=== PATIENT | female | born 1990 | race Caucasian/White ===

== ENCOUNTER 2022-02-16 11:04 | Inpatient (IN) | payer BC ==
--- NOTE | 2022-02-17 20:01 | P.HPOB ---
History of Present Illness H&P Date: 02/17/22 Chief Complaint: Requested induction of labor This patient is a pleasant 32 yr female EDC 02/16/2022 estimated gestational age 40 2/7 weeks who presents to L&D for requested postdates induction of labor. has been uncomplicated. Review of Systems Genitourinary: Reports Menstruation: Reports amenorrhea Past Medical History Past Medical History: No Reported History History of Any Multi-Drug Resistant Organisms: None Reported Past Surgical History: No Surgical Hx Reported Past Anesthesia/Blood Transfusion Reactions: No Reported Reaction Past Psychological History: No Psychological Hx Reported Smoking Status: Never smoker Past Alcohol Use History: None Reported Past Drug Use History: None Reported Medications and Allergies Allergies Allergy/AdvReac Type Severity Reaction Status Date / Time No Known Allergies Allergy Verified 02/17/22 19:57 Exam - OBG Physical Exam Abdomen: bowel sounds normal, no diffuse tenderness, no bruit present, no guarding noted, no hepatomegaly, no splenomegaly, no mass Vulva: both: normal Vagina: normal moisture, no discharge Cervix: no lesion (Cx 2/50%/-2 in the office), no discharge Uterus: enlarged (Fundal height was 39 cm) Results Labs: O positive, Rubella Immune, ZBC-OdmI-EBV neg, GBS was positive, Glucola 157 with a normal 3hr GTT. Ultrasound on 01/12 showed EFW 5#3oz (~50%) Assessment and Plan Assessment: This is a pleasant 32 yr female estimated gestational age 40 2/7 weeks who presents to L&D for requested induction of labor. History of positive GBS this . Plan is antibiotic prophylaxis and induction of labor. Anticipate vagina delivery (1) Postmaturity , 40-42 weeks gestation Status: Acute Code(s): O48.0 - POST-TERM SNOMED Code(s): 66166286534079 (2) Group B streptococcal carriage complicating Status: Acute Code(s): O99.820 - STREPTOCOCCUS B CARRIER STATE COMPLICATING SNOMED Code(s): 252537129038280 (3) Elective induction of labor planned Status: Acute Code(s): LZN0330 - SNOMED Code(s): 054050772
[2022-02-18] MEDS ORDERED: AMPICILLIN 2,000 MG in SODIUM CHLORIDE 0.9% 100 ML IVPB ONE (06:00)
[2022-02-18] MEDS ORDERED: CARBOPROST TROMETHAMINE 250 MCG/ML 1 ML AMP IM PRN (06:06)
[2022-02-18] MEDS ORDERED: OXYTOCIN 10 UNIT/ML 1 ML VIAL IM PRN (06:06)
[2022-02-18] MEDS ORDERED: OXYTOCIN 30 UNITS/500 ML NS 30 UNIT in SALINE 1 500ML.BAG IV SCH ×2 (06:06→20:15)
[2022-02-18] MEDS ORDERED: TERBUTALINE 1 MG/ML VIAL SQ PRN (06:06)
[2022-02-18] MEDS ORDERED: METHYLERGONOVINE 0.2 MG/ML 1 ML AMP IM PRN (06:06)
[2022-02-18] MEDS ORDERED: LIDOCAINE 0.5% (PF) 5 MG/ML (50 ML SDV) SQ PRN (06:06)
[2022-02-18] MEDS: LACTATED RINGERS 1,000 ML IV SCH ×3 (06:29→20:15)
[2022-02-18 06:50] LABS: Anisocytosis Slight; Basophils % (A) 0 %; Eosinophils % (A) 1 %; HCT 33.8 % (34.0-46.0); HGB 10.5 gm/dL (11.4-16.0); Hypochromasia Moderate; Lymphocytes % (A) 28 %; MCH 22.5 pg (25.0-35.0); MCHC 30.9 g/dL (31.0-37.0); MCV 72.6 fL (80.0-100.0); Mean Platelet Volume 9.8; Microcytosis Moderate; Monocytes # (A) 0.3 k/uL (0-1.0); Monocytes % (A) 5 %; Neutrophils # (A) 4.6 k/uL (1.3-7.7); Neutrophils % (A) 66 %; Platelet Count 157 k/uL (150-450); RBC 4.66 m/uL (3.80-5.40); RDW 17.4 % (11.5-15.5)
[2022-02-18] MEDS: AMPICILLIN 1,000 MG in SODIUM CHLORIDE 0.9% 50 ML IVPB SCH ×3 (11:02→19:11)
[2022-02-18] MEDS ORDERED: fentaNYL (PF) 50 MCG/ML 5 ML AMP ONE (13:50)
[2022-02-18] MEDS ORDERED: SODIUM CHLORIDE 0.9% 100 ML BAG ONE (13:50)
[2022-02-18] MEDS ORDERED: ROPIVACAINE 5MG/ML 20ML VIAL ONE (13:50)
[2022-02-18] MEDS ORDERED: CITRIC ACID-SODIUM CITRATE 15 ML CUP PO ONE (18:59)
[2022-02-18] MEDS ORDERED: NALBUPHINE 10 MG/ML (1 ML AMP) ONE (19:16)
[2022-02-18] MEDS ORDERED: ONDANSETRON 4 MG/2 ML VIAL ONE (19:16)
[2022-02-18] MEDS ORDERED: KETOROLAC 15 MG/ML 1 ML VIAL ONE (19:16)
[2022-02-18] MEDS ORDERED: MORPHINE SULFATE (PF) 0.3 MG/0.3 ML SYR ONE (19:16)
[2022-02-18] MEDS ORDERED: MORPHINE SULFATE 2 MG/ML SYRINGE IVP PRN (19:39)
[2022-02-18] MEDS ORDERED: diphenhydrAMINE 50 MG/ML 1 ML VIAL IVP PRN ×2 (19:39→20:02)
[2022-02-18] MEDS ORDERED: NALOXONE 0.4 MG/ML 1 ML VIAL IV PRN (19:39)
[2022-02-18] MEDS ORDERED: ONDANSETRON 4 MG/2 ML VIAL IVP PRN (19:39)
[2022-02-18] MEDS ORDERED: METOCLOPRAMIDE 5 MG/ML 2 ML VIAL IVP PRN (20:02)
[2022-02-18] MEDS ORDERED: diphenhydrAMINE 25 MG CAP PO PRN (20:02)
[2022-02-18] MEDS ORDERED: ZOLPIDEM 5 MG TAB PO PRN (20:02)
--- NOTE | 2022-02-18 20:24 | P.OP ---
Date of Procedure: 02/18/22 Preoperative Diagnosis: #1: 40-2/7 week intrauterine . #2: Failure to descend/progress in labor Postoperative Diagnosis: Same Procedure(s) Performed: Primary low transverse section Anesthesia: spinal Surgeon: Sae Dillon Director Of Restaurant Operations #1: Kassy Heard Estimated Blood Loss (ml): 600 Pathology: none sent Condition: stable Disposition: floor Indications for Procedure: Please see dictated H&P for intimate details of this patient's admission. Brief summary this is a pleasant 32-year-old 1 para 0 female 40-2/7 weeks gestation who presented this morning for postdates induction of labor. Patient is artificial rupture membranes at 2 cm dilated for clear fluid. Labor is induced with Pitocin per protocol. Despite prolonged labor the head did not descend beyond -2 station. She also some decreased variability at that time I discussed options with her and elected proceed with section for delivery. Patient understands this surgery and risks and risks of infection, bleeding, possible injury bowel, bladder, vessels, and/or other organs. All the patient's questions are answered and a written consent is obtained. Operative Findings: Vigorous viable female infant Apgars 9 and 9 delivery times 1932 hrs. head was transverse presentation Description of Procedure: This patient has a Pitt catheter placed to straight drain. She is subsequently taken to the operating room where the epidural was dosed up for sufficient level of surgery. With an adequate level of anesthesia she has abdominal prep and drape. Scalpels then taken and a Pfannenstiel skin incision is then made. A second scalpel is taken down the fascia the fascia scored with a knife. Fascial incision extended bilaterally using the Vásquez scissors. Fascia is dissected sharply off the rectus muscles. Rectus muscles are peritoneum identified and entered sharply. Peritoneal incision extended superior and inferior without difficulty. Bladder blade is then placed. Bladder peritoneum was taken sharply off the lower uterine segment. Scalpels and taken low transverse uterine incision is then made. Using a hemostat I into the uterine cavity bluntly and there is loss of small amount of clear fluid. The uterine incision is then bluntly extended. Infant's head is then guided through the incision with fundal pressure. Mouth and nares are bulb suctioned. There is a nuchal cord 1 which is reduced. With more fundal pressure we then deliver the rest of this's 1932 hrs. After delivery of the the umbilical cord is doubly clamped and cut is handed off to the nurse who is in attendance. The placenta is then manually extracted intact. Uterine incision demarcated with Reeder clamps and closed using 0 Vicryl running locked fashion 2 laye rs. Excellent hemostasis is noted bladder peritoneum was then reapproximated using a 3-0 Vicryl running fashion. Excess fluid is removed from the abdomen and pelvis. Uterus is placed back into the abdomen. The uterus, tubes, ovaries appear normal for term gestation. The parietal peritoneum was then closed using 0 Vicryl running fashion. Rectus muscles reapproximated using 0 Vicryl interrupted fashion. Fascial incision then closed using 0 PDS. Fascial incision is intact and hemostatic. Subcutaneous tissues and closed using a 3-0 Vicryl. Skin is and closed using josy. Sterile dressing is applied. All counts are correct 3. No complications. and mother are stable delivery room.
[2022-02-19] MEDS: IBUPROFEN 600 MG TAB PO SCH ×3 (02:00→21:39)
[2022-02-19] MEDS: KETOROLAC 15 MG/ML 1 ML VIAL IVP SCH ×3 (02:00→17:02)
[2022-02-19] MEDS: ACETAMINOPHEN TAB 500 MG TAB PO SCH ×5 (02:03→23:41)
[2022-02-19] MEDS: LACTATED RINGERS 1,000 ML IV SCH ×3 (06:28→21:40)
--- NOTE | 2022-02-19 06:45 | P.PNOBGPC ---
Subjective - Subjective Patient reports: Reports appetite normal, Reports voiding normally, Reports pain well controlled, Reports ambulating normally : doing well Objective - Vital Signs Latest vital signs: Vital Signs Temp Pulse Resp BP Pulse Ox 02/19/22 02:00 15 02/19/22 00:39 98 02/19/22 00:00 97.9 F 86 15 130/82 98 02/18/22 22:39 16 02/18/22 22:00 98.1 F 89 15 133/75 97 02/18/22 21:30 90 16 132/83 97 02/18/22 21:00 82 16 127/83 98 02/18/22 20:45 84 15 139/94 99 02/18/22 20:39 16 98 02/18/22 20:30 86 16 134/79 100 02/18/22 20:15 90 15 137/72 100 02/18/22 20:00 97.2 F L 83 16 122/80 100 02/18/22 07:30 97.3 F L 82 18 131/82 98 Intake and Output 02/18/22 02/18/22 02/19/22 14:59 22:59 06:59 Intake Total 26.967 Output Total 2014 200 Balance -1988.033 -200 Intake: Intake, IV Titration 26.967 Amount Oxytocin 30 Units/500 ml 26.967 Ns 30 unit In Saline 1 500ml.bag @ Per Protocol IV .Q0M [facility] Rx#:[id number] Output: Urine 600 200 Straight 300 Estimated Blood Loss 1200 Output, Quantitative 215 Blood Loss Other: Voiding Method Indwelling Catheter Indwelling Catheter Weight 94.347 kg - Exam Lungs: bilateral: normal Chest: Normal S1, Normal S2 Extremities: Present: normal Abdomen: Present: normal appearance, soft. Absent: distention, tenderness Incision: Present: normal, dry, intact Uterus: Present: normal, firm - Labs Labs: Abnormal Lab Results - Last 24 Hours (Table) 02/18/22 Range/Units 06:08 Hgb 10.5 L (11.4-16.0) gm/dL Hct 33.8 L (34.0-46.0) % MCV 72.6 L (80.0-100.0) fL MCH 22.5 L (25.0-35.0) pg MCHC 30.9 L (31.0-37.0) g/dL RDW 17.4 H (11.5-15.5) % Assessment and Plan Assessment: Postoperative day #1. Patient is resting without complaints. Vital signs are stable she is afebrile. Her incision is intact and dry. CBC is pending at time of this dictation. Plan today is to advance her diet, check a CBC, allow the patient to shower, and continue routine postoperative care. (1) Postmaturity , 40-42 weeks gestation Current Visit: No Status: Acute Code(s): O48.0 - POST-TERM SNOMED Code(s): 13507191203023 (2) Group B streptococcal carriage complicating Current Visit: No Status: Acute Code(s): O99.820 - STREPTOCOCCUS B CARRIER STATE COMPLICATING SNOMED Code(s): 444507860921552 (3) Elective induction of labor planned Current Visit: No Status: Acute Code(s): YDS4239 - SNOMED Code(s): 836799539
[2022-02-19 07:58] LABS: Anisocytosis Slight; Basophils % (A) 0 %; Eosinophils % (A) 0 %; HCT 26.4 % (34.0-46.0); Hypochromasia Marked; Lymphocytes # (A) 1.2 k/uL (1.0-4.8); Lymphocytes % (A) 17 %; MCH 22.3 pg (25.0-35.0); MCHC 30.5 g/dL (31.0-37.0); MCV 73.2 fL (80.0-100.0); Mean Platelet Volume 8.4; Microcytosis Moderate; Monocytes # (A) 0.3 k/uL (0-1.0); Monocytes % (A) 4 %; Neutrophils # (A) 5.4 k/uL (1.3-7.7); Neutrophils % (A) 78 %; Platelet Count 119 k/uL (150-450); RBC 3.61 m/uL (3.80-5.40); RDW 17.5 % (11.5-15.5)
[2022-02-19 08:01] LABS: HGB 8.1 gm/dL (11.4-16.0)
--- NOTE | 2022-02-19 08:14 | P.PN ---
Progress Note - Text Date: 02/19/2022 Time: 07:07 The patient is status post section Vital signs stable VAS: 0-10 Patient has no complaints of pain. The patient incurred some minimal itching yesterday, this itching is now subsiding. Pain meds to be managed by service.
[2022-02-19] MEDS: SENNOSIDES-DOCUSATE SODIUM 1 EACH TAB PO SCH ×2 (08:31→20:13)
[2022-02-19] MEDS: SIMETHICONE 80 MG CHEWABLE PO PRN (20:13)
[2022-02-20] MEDS: IBUPROFEN 600 MG TAB PO SCH ×4 (05:53→20:38)
[2022-02-20] MEDS: ACETAMINOPHEN TAB 500 MG TAB PO SCH ×3 (05:54→20:37)
[2022-02-20] MEDS: SENNOSIDES-DOCUSATE SODIUM 1 EACH TAB PO SCH ×2 (08:54→20:21)
--- NOTE | 2022-02-20 12:09 | P.DS ---
Providers Date of admission: 02/18/22 05:49 Expected date of discharge: 02/20/22 Attending physician: Sae Dillon Primary care physician: Stated None Hospital Course: This is a 32-year-old female 1 para 0 at 40-2/7 weeks who presented for induction of labor. She underwent oxytocin induction of labor and then ended up with a primary low transverse section due to failure to progress on 02/18/2022. She delivered a viable female with scores of 9 at 1 minute and 9 at 5 minutes and infant weight of 6 lbs. 14 oz. Her postoperative and course were uncomplicated. Lochia has been decreasing. Her pain is fairly well controlled. She is breast-feeding. Vital signs are stable. Abdomen is soft with fundus firm and nontender. Incision is clean dry and intact with josy in place. Extremities show negative Homans. Impression is status post primary low transverse section postoperative day #2. Plan is to discharge home later today as long as baby is able to go. Routine postope rative and instructions are given. Josy will be removed and Steri-Strips placed prior to discharge. She has been given prescriptions per Dr. Dillon. She has a breast pump. She is advised follow-up in the office in approximately one week for a postoperative check and in 6 weeks for check. She is advised to call the office if she has any further questions or concerns prior to her appointment time. Procedures: Oxytocin induction of labor Primary low transverse section for delivery of a viable female on 02/18/2022 Patient Condition at Discharge: Stable Plan - Discharge Summary New Discharge Prescriptions: New Ibuprofen [Motrin] 600 mg PO Q6H #30 tab oxyCODONE HCL [OxyIR] 5 mg PO Q4HR PRN #18 tab PRN Reason: Pain Discharge Medication List Ibuprofen [Motrin] 600 mg PO Q6H #30 tab 02/19/22 [Rx] oxyCODONE HCL [OxyIR] 5 mg PO Q4HR PRN #18 tab 02/19/22 [Rx] Follow up Appointment(s)/Referral(s): Sae Dillon MD [STAFF PHYSICIAN] - 03/29/22 2:45 pm (Please see me in 1 week for an incision check and then in 6 weeks for visit. 1 week appointment 02/24/2022 @8:30 Am) Patient Instructions/Handouts: (DC) Activity/Diet/Wound Care/Special Instructions: No heavy lifting or strenuous activity for 6 weeks. No intercourse or anything per vagina for 6 weeks. Please call if fever, chills, excessive vaginal bleeding, and/or abdominal pain. Discharge Disposition: HOME SELF-CARE
[2022-02-20] MEDS: SIMETHICONE 80 MG CHEWABLE PO PRN (20:19)
[2022-02-21] MEDS: IBUPROFEN 600 MG TAB PO SCH ×2 (00:23→09:05)
[2022-02-21] MEDS: ACETAMINOPHEN TAB 500 MG TAB PO SCH ×2 (03:02→11:28)
[2022-02-21] MEDS: SENNOSIDES-DOCUSATE SODIUM 1 EACH TAB PO SCH (09:06)
[2022-02-21 09:15] VITALS: BP 125/82; PULSE 101; RESP 16; TEMP 97.7
== END 2022-02-21 12:05 | disposition home or self-care (01) | DRG 787 ==
LOC: 4FBP 02-18 05:49
PROVIDERS: ADMIT Obstetrics & Gynecology; ATTEND Obstetrics & Gynecology
PROC: 10907ZC Drainage of Amniotic Fluid, Therapeutic from Products of Conception, Via Natural or Artificial Opening (ICD-10-PCS; 2022-02-18)
PROC: 3E033VJ Introduction of Other Hormone into Peripheral Vein, Percutaneous Approach (ICD-10-PCS; 2022-02-18)
PROC: 4A0HXCZ Measurement of Products of Conception, Cardiac Rate, External Approach (ICD-10-PCS; 2022-02-18)
PROC: 10D00Z1 Extraction of Products of Conception, Low, Open Approach (ICD-10-PCS; principal; 2022-02-18 19:30)
DX: O32.4XX0 Maternal care for high head at term, not applicable or unspecified (principal); O63.9 Long labor, unspecified; O32.2XX0 Maternal care for transverse and oblique lie, not applicable or unspecified; O61.0 Failed medical induction of labor; L29.9 Pruritus, unspecified; O48.0 Post-term pregnancy; O99.824 Streptococcus B carrier state complicating childbirth; Z37.0 Single live birth; Z3A.40 40 weeks gestation of pregnancy; O99.73 Diseases of the skin and subcutaneous tissue complicating the puerperium
CPT/HCPCS: 85025; 86850; 86900; 86901